=== PATIENT | female | born 1955 | race Asian ===

== ENCOUNTER 2016-10-11 22:58 | Emergency (ER) | payer OTHER ==
[2016-10-12] MEDS ORDERED: CATAPRES ONE (00:50)
[2016-10-12] MEDS ORDERED: CATAPRES PO ONE (00:53)
--- NOTE | 2016-10-12 02:27 | XRay Report ---
FINAL REPORT EXAM: XR FOOT 3 RT HISTORY: pain/fall COMPARISON: None available. FINDINGS: Three views of right foot obtained. Mild narrowing and hypertrophic spurring of the interphalangeal joints. Prominent plantar calcaneal spur. No acute fracture dislocation. IMPRESSION: No acute bony abnormality.
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
[2016-10-12 03:44] VITALS: BP 157/84
[2016-10-12] MEDS ORDERED: MOTRIN PO ONE (03:59)
[2016-10-12] MEDS ORDERED: FLEXERIL PO ONE (03:59)
--- NOTE | 2016-10-12 04:15 | Emergency Department Report ---
HPI - General Chief Complaint: Extremity Injury, Lower Time Seen by Provider: 10/12/16 03:57 - HPI HPI: Patient is a 61-year-old female with a history of hypertension on blood pressure medications and presents to ED complaining of hurting in her right lower leg foot earlier today she was at a friend's house. She states the she tripped and small hole in this foot and since she has had pain on her right leg and foot. Patient states mild tenderness to applied pressure. She denies hitting her head or loss consciousness after incident. She denies fevers/chills/nausea/vomiting/dizziness/headache/blurred vision/eye pain/chest pain/shortness of breath or any other Problems ED Past Medical Hx - Past Medical History Previous Medical History?: Yes Hx Hypertension: Yes Hx Diabetes: Yes Hx HIV: No - Surgical History Hx Cholecystectomy: Yes Hx Breast Surgery: Yes (BREAST REDUCTION) - Social History Smoking Status: Never Smoker - Medications Home Medications: Home Medications Medication Instructions Recorded Confirmed Last Taken Type Lisinopril 20 mg PO DAILY 10/26/14 10/26/14 Unknown History metFORMIN 850 mg PO BID 10/26/14 10/26/14 Unknown History Cyclobenzaprine [Flexeril 10 MG 10 mg PO QHS #24 tablet 10/12/16 Unknown Rx TAB] Naproxen [Naprosyn] 500 mg PO BID #30 tablet 10/12/16 Unknown Rx ED Review of Systems ROS: Stated complaint: R ANKLE PAIN Other details as noted in HPI Constitutional: denies: chills, fever Eyes: denies: eye pain, eye discharge, vision change ENT: denies: ear pain, throat pain Respiratory: denies: cough, shortness of breath, wheezing Cardiovascular: denies: chest pain, palpitations Endocrine: no symptoms reported Gastrointestinal: denies: abdominal pain, nausea, diarrhea Genitourinary: denies: urgency, dysuria, discharge Musculoskeletal: denies: back pain, joint swelling, arthralgia Skin: denies: rash, lesions Neurological: denies: headache, weakness, paresthesias Psychiatric: denies: anxiety, depression Hematological/Lymphatic: denies: easy bleeding, easy bruising Physical Exam - Physical Exam Vital Signs: Vital Signs 10/12/16 10/12/16 10/12/16 00:39 00:55 03:43 Temperature 97.8 F Pulse Rate 80 80 73 Respiratory 18 16 Rate Blood Pressure 190/134 190/134 Blood Pressure 157/84 [Left] O2 Sat by Pulse 98 100 Oximetry Physical Exam: GENERAL: Alert and oriented x3, no apparent distress, Normal Gait, atraumatic. HEAD: Head is normocephalic and a-traumatic. NECK: Supple. Non edematous, No carotid bruits. No lymphadenopathy or thyromegaly. No C-spine tenderness LUNGS: Symetrical with respiration, No wheezing, no rales or crackles, CTAB. HEART: S1, S2 present, regular rate and rhythm without murmur, no rubs, no gallops. Non tender to palpation EXTREMITIES/MUSCULOSKELETAL: No cyanosis, clubbing, rash, lesions or edema. Full ROM bilaterally. UE/LE Pulses 2+ bilaterally. Ankle joint is intact. Nonedematous, nonerythematous, patient able to apply pressure without difficulty. Mild tenderness to palpation of the foot. BACK: Full range of motion, no spinal tenderness, no CVA tenderness. NEUROLOGIC: The patient is cooperative with no focal neurologic deficits. Cranial nerves II through XII are grossly intact. Normal speech. PSYCHIATRIC: Mood is congruent with affect, denies suicidal or homicidal ideations. SKIN: Warm and dry, No lesions, No ulceration or induration present. ED Course Vital Signs 10/12/16 10/12/16 10/12/16 00:39 00:55 03:43 Temperature 97.8 F Pulse Rate 80 80 73 Respiratory 18 16 Rate Blood Pressure 190/134 190/134 Blood Pressure 157/84 [Left] O2 Sat by Pulse 98 100 Oximetry ED Medical Decision Making - Medical Decision Making 61-year-old female presents to the ED with a sprain of the right foot ED course: Patient received Motrin and Flexeril in ED. Lab studies were not ordered by triage. By the time I saw patient and discussed to have blood drawn,patient declines and states she is ready to go home and wants her x-ray results. Due to elevated blood pressure patient was given clonidine 0.2 in triage. Blood pressure reduced during ed stay. She is not asymptomatic and states she did not take her blood pressure medication. Discussed the patient and continue to take blood pressure medication daily. Discussed continued home medications are Flexeril and Motrin for pain Discussed with patient to follow up with her primary care physician. Vital signs are normal patient is in no acute distress she understands instructions given. Critical care attestation.: If time is entered above; I have spent that time in minutes in the direct care of this critically ill patient, excluding procedure time. ED Disposition Clinical Impression: Foot pain, right Sprain of foot, right Qualifiers: Encounter type: initial encounter Qualified Code(s): S93.601A - Unspecified sprain of right foot, initial encounter Disposition: TO HOME OR SELFCARE Is pt being admited?: No Does the pt Need Aspirin: No Condition: Stable Instructions: Foot Sprain (ED), Ankle Exercises (GEN), Heat Pack Application ( ED) Prescriptions: Cyclobenzaprine [Flexeril 10 MG TAB] 10 mg PO QHS #24 tablet Naproxen [Naprosyn] 500 mg PO BID #30 tablet Referrals: PRIMARY CARE, [Primary Care Provider] - 3-5 Days [facility] [Outside] - 3-5 Days [facility] [Outside] - 3-5 Days [facility] [Outside] - 3-5 Days Forms: Accompanied Note, Work/School Release Form Time of Disposition: 04:22
== END 2016-10-12 05:11 | disposition home or self-care (01) ==
LOC: ED 22:58
DX: S93.601A Unspecified sprain of right foot, initial encounter (principal); I10 Essential (primary) hypertension; E11.9 Type 2 diabetes mellitus without complications; X58.XXXA Exposure to other specified factors, initial encounter; Y93.9 Activity, unspecified; Y92.9 Unspecified place or not applicable; Y99.9 Unspecified external cause status
CPT/HCPCS: 99284